=== PATIENT | male | born 1980 | race Caucasian/White ===

== ENCOUNTER 2017-08-08 11:49 | Emergency (ER) | payer OTHER ==
[~2017-08-08] VITALS: Ht 188 cm; Wt 64.0 kg
[2017-08-08 14:19] LABS: ABSOLUTE BASOPHIL COUNT 0 /CUMM (0.0-0.2); ABSOLUTE EOSINOPHIL COUNT 0.2 /CUMM (0.0-0.7); ABSOLUTE GRANULOCYTE CT 11.1 /CUMM (1.4-6.5); ABSOLUTE LYMPH COUNT 1.3 /CUMM (1.2-3.4); ABSOLUTE MONOCYTE COUNT 0.8 /CUMM (0.10-0.60); BASOPHIL % 0.2 % (0.0-2.0); EOSINOPHIL % 1.8 % (0-5); GRANULOCYTE % 82.6 % (42.2-75.2); HEMATOCRIT 45.1 % (42-52); MEAN CORPUSCULAR HGB 33.1 PG (27.0-31.0); MEAN CORPUSCULAR HGB CONC 34.6 G/DL (33.0-37.0); MEAN CORPUSCULAR VOLUME 95.6 FL (80.0-94.0); MEAN PLATELET VOLUME 7.8 FL (7.4-10.4); PLATELET COUNT 288 /CUMM (130-400); RBC DISTRIBUTION WIDTH 12.1 % (11.5-14.5); RED BLOOD CELL CT 4.72 /CUMM (4.70-6.10); WHITE BLOOD CELL COUNT 13.4 /CUMM (4.8-10.8)
--- NOTE | 2017-08-08 14:19 | RADIOLOGY REPORT ---
EXAMINATION: XR CHEST, 2 VIEWS CLINICAL INFORMATION: Chest tightness. COMPARISON: None. TECHNIQUE: PA and lateral views of the chest were obtained. FINDINGS: Lungs are hyperexpanded, likely physiologic. No consolidation, pneumothorax, or pleural effusion. Cardiac and mediastinal contours are normal. Pulmonary vasculature is unremarkable. Trachea is midline. Osseous structures are unremarkable. IMPRESSION: Normal chest radiographs.
--- NOTE | 2017-08-08 16:00 | ED DYSPNEA/ASTHMA COMPLAINT ---
History of Present Illness General Chief Complaint: Upper Respiratory Sx/Fever Stated Complaint: URI/ASTHMA/CHEST TIGHTNESS SINCE SUNDAY Source: patient, old records Exam Limitations: no limitations Vital Signs & Intake/Output Vital Signs & Intake/Output Vital Signs Date Time Temp Pulse Resp B/P B/P Pulse O2 O2 Flow FiO2 Mean Ox Delivery Rate 08/08 1615 Room Air 08/08 1614 67 18 132/84 99 Room Air 08/08 1614 98 08/08 1249 98.6 64 18 128/83 98 Room Air Allergies Coded Allergies: Penicillins (Intermediate, HIVES, SWELLING DIFFICULTY BREATHING 08/08/17) Reconcile Medications Azithromycin (Zithromax) 250 MG TABLET 1 DP PO AD SINUSITIS 2 the first day followed by 1 for days 2-5 Prednisone 10 MG TABLET 1 TAB PO DAILY ASTHMA TAKE 3 TABS FOR 3 DAYS THEN TAKE 2 TABS FOR 3 DAYS THEN TAKE 1 TAB FOR 3 DAYS Triage Note: RECEIVED 37 YO MALE WITH HX OF ASTHMA, C/O LLQ ABDOMINAL PAIN, STARTED OVER THE WEEKEND WITH H/A. PT ALSO REPORTS CHEST TIGHTNESS, SINUS PRESSURE, AND COUGHING UP BLOOD. FAINT WHEEZING NOTED. Triage Nurses Notes Reviewed? yes HPI: Patient presents with a 2 day history of sinus congestion, postnasal drip and increasing wheezing. He is now getting some chest tightness. He has a nonproductive cough. There are no fevers or chills. He denies any orthopnea or dyspnea on exertion. There is no nausea or vomiting. Past History Travel History Traveled to [place] past 21 day No Medical History Any Pertinent Medical History? see below for history Neurological: NONE EENT: NONE Cardiovascular: NONE Respiratory: asthma Gastrointestinal: NONE Hepatic: NONE Renal: NONE Musculoskeletal: NONE Psychiatric: NONE Endocrine: NONE Blood Disorders: NONE Cancer(s): NONE Surgical History Surgical History: non-contributory Psychosocial History What is your primary language Indonesian Tobacco Use: Never used ETOH Use: occasional use Illicit Drug Use: denies illicit drug use Family History Hx Contributory? No Review of Systems Review of Systems Constitutional: Reports: no symptoms. EENTM: Reports: see HPI, nasal congestion. Respiratory: Reports: see HPI, cough, wheezing. Cardiovascular: Reports: no symptoms. GI: Reports: no symptoms. Genitourinary: Reports: no symptoms. Musculoskeletal: Reports: no symptoms. Skin: Reports: no symptoms. Neurological/Psychological: Reports: no symptoms. Hematologic/Endocrine: Reports: no symptoms. Immunologic/Allergic: Reports: no symptoms. All Other Systems: Reviewed and Negative Physical Exam Physical Exam General Appearance: well developed/nourished, alert, awake, mild distress Head: atraumatic, normal appearance Eyes: Bilateral: PERRL, EOMI. Ears, Nose, Throat: normal pharynx, hearing grossly normal, nasal congestion Neck: normal inspection, supple, full range of motion Respiratory: decreased breath sounds, wheezing Cardiovascular: regular rate/rhythm, normal peripheral pulses Gastrointestinal: normal bowel sounds, soft, non-tender, no organomegaly Extremities: normal inspection, normal capillary refill, normal range of motion, no edema Neurologic/Psych: no motor/sensory deficits, awake, alert, oriented x 3, normal gait, normal mood/affect Skin: intact, normal color, warm/dry Lymphatic: no anterior cervical riley Core Measures ACS in differential dx? No CVA/TIA Diagnosis No Sepsis Present: No Sepsis Focused Exam Completed? No Progress Differential Diagnosis: asthma, bronchitis Plan of Care: Orders Procedure Date/time Status URINALYSIS 08/08 1247 Complete TROPONIN LEVEL 08/08 1247 Complete D-DIMER 08/08 1247 Complete COMPREHENSIVE METABOLIC PANEL 08/08 1247 Complete CBC WITHOUT DIFFERENTIAL 08/08 1247 Complete EKG 08/08 1247 Active Laboratory Tests 08/08/17 1419: Urine Color YEL, Urine Clarity CLEAR, Urine pH 6.5, Ur Specific [place] 1.010, Urine Protein NEG, Urine Ketones NEG, Urine Nitrite NEG, Urine Bilirubin NEG, Urine Urobilinogen 0.2, Ur Leukocyte Esterase NEG, Ur Microscopic SEDIMENT EXAMINED, Urine RBC 1-3, Urine WBC RARE, Urine Hemoglobin TRACE-INTACT H, Urine Glucose NEG 08/08/17 1411: Anion Gap 11, Estimated GFR > 60, BUN/Creatinine Ratio 14.4, Glucose 94, Calcium 9.5, Total Bilirubin 0.9, AST 28, ALT 20 L, Alkaline Phosphatase 74, Troponin I < 0.01, Total Protein 7.8, Albumin 4.6, Globulin 3.2, Albumin/Globulin Ratio 1.4 , D-Dimer High Sensitivty < 200, CBC w Diff NO MAN DIFF REQ, RBC 4.72, MCV 95.6 H, MCH 33.1 H, MCHC 34.6, RDW 12.1, MPV 7.8, Gran % 82.6 H, Lymphocytes % 9.4 L, Monocytes % 6.0, Eosinophils % 1.8, Basophils % 0.2, Absolute Granulocytes 11.1 H, Absolute Lymphocytes 1.3, Absolute Monocytes 0.8 H, Absolute Eosinophils 0.2, Absolute Basophils 0 Initial ED EKG: none Departure Departure Disposition: HOME OR SELF CARE Condition: Stable Clinical Impression Primary Impression: Asthma Secondary Impressions: Sinusitis Referrals: Uzma THORNE,Jet (PCP/Family) Additional Instructions: Take antibiotics as prescribed. Take prednisone as prescribed. Use inhaler as needed. Return if symptoms worsen or for any concerns. Departure Forms: Customer Survey General Discharge Information Prescriptions: Current Visit Scripts Azithromycin (Zithromax) 1 DP PO AD #6 TAB 2 the first day followed by 1 for days 2-5 Prednisone 1 TAB PO DAILY #18 TAB TAKE 3 TABS FOR 3 DAYS THEN TAKE 2 TABS FOR 3 DAYS THEN TAKE 1 TAB FOR 3 DAYS Critical Care Note Critical Care Note Critical Care Time: non-applicable
[2017-08-08] MEDS ORDERED: PREDNISONE10 M2 PO (16:06)
[2017-08-08] MEDS ORDERED: ZITHROMAX250 M2 PO (16:06)
== END 2017-08-08 17:00 ==
LOC: ERH 11:49
PROVIDERS: Physician Assistant Medical
DX: J45.909 Unspecified asthma, uncomplicated (principal); J32.9 Chronic sinusitis, unspecified; R07.89 Other chest pain
CPT/HCPCS: 1263; 71046; 81001; 93005; 93010